=== PATIENT | female | born 1960 | race African-American/Black ===

== ENCOUNTER 2017-03-09 11:54 | Emergency (ER) | payer MEDICAID, MEDICARE ==
[~2017-03-09] VITALS: Ht 167.6 cm; Wt 78.0 kg
[~2017-03-09 11:54] MED LIST: ATOR80TA PO; CLON.2 PO; CLOTCRE17 TOP; COMPTAB16 PO; HYDR-3533 PO
[2017-03-09 11:56] VITALS: BP 118/67; PULSE 78; RESP 16; TEMP 98.2; O2SAT 98
[2017-03-09] MEDS ORDERED: FLUT50SP EACH NARE ×2 (12:27→12:36)
[2017-03-09] MEDS ORDERED: LISI10TA PO (12:30)
--- NOTE | 2017-03-09 12:31 | PD ---
HPI Chief Complaint: Bite or Sting Time Seen by Provider: 12:05 Travel History International Travel<30 days: No Contact w/Intl Traveler<30days: No Traveled to known affect area: No History of Present Illness HPI 57-year-old female past medical history of HIV, hypothyroid, HTN, hyperlipidemia presents to the emergency department with chief complaint of pruritic insect bites. Patient reports that she was bitten by a mosquito on the right side of her face and multiple ant bites to her right foot yesterday while outside. She reports that this morning she noticed mild swelling to the right side of the face. The Area continues to be pruritic therefore she came into the ER for evaluation. She denies fevers, chills, nausea, or vomiting. She reports mild pain in the right foot at the site of the ant bites. She reports similar symptoms previously dictated. She reports compliance with her HIV meds her last CD4 count was 541. PFSH Past Medical History Narrative Medical Pertinent past medical history HIV positive, hypertension, hypothyroidism, hyperlipidemia. Arthritis: Yes (RA RT KNEE) Asthma: No Autoimmune Disease: Yes (HIV POSITIVE) Blood Disorders: No Anxiety: No Depression: No Heart Rhythm Problems: No Cancer: No Cardiovascular Problems: No High Cholesterol: Yes Chemotherapy: No Chest Pain: No Congestive Heart Failure: No COPD: No Cerebrovascular Accident: No Diabetes: No Diminished Hearing: No Endocrine: No GERD: No Glaucoma: No Genitourinary: No Headaches: No Hepatitis: No Hiatal Hernia: No Hypertension: No Immune Disorder: Yes (HIV POS) Kidney Stones: No Musculoskeletal: No Neurologic: No Psychiatric: No Reproductive: No Respiratory: No Migraines: No Myocardial Infarction: No Radiation Therapy: No Renal Failure: No Seizures: No Sickle Cell Disease: No Sleep Apnea: No Ulcer: No PNEUMOCCOCAL Vaccine (Year): 2009 Menopausal: Yes : 4 Para: 4 Tubal Ligation: Yes Past Surgical History Abdominal Surgery: No AICD: No Appendectomy: No Arteriovenous Shunt: No Cardiac Surgery: No Cholecystectomy: No Ear Surgery: No Endocrine Surgery: No Eye Surgery: No Genitourinary Surgery: No Gynecologic Surgery: No Insulin Pump: No Joint Replacement: No Oral Surgery: No Thoracic Surgery: No Other Surgery: Yes (SKIN GRAFT LFT LEG) Social History Alcohol Use: Yes (OCCASIONALLY) Tobacco Use: Yes (1/2 PPD) Allergies-Medications (Allergen,Severity, Reaction): Coded Allergies: Penicillin (Verified Allergy, Intermediate, HIVES, 03/09/17) Reported Meds & Prescriptions Reported Meds & Active Scripts Active Reported Fluticasone Nasal [place] 50 Mcg/Act Naspr 50 Mcg EACH NARE BID 50 mcg/spray Ranitidine (Ranitidine HCl) 150 Mg Cap 150 Mg PO DAILY Omeprazole 40 Mg Cap 40 Mg PO DAILY Odefsey (Vanhtqsbvnraz-Obenelqazlx-Etocuekqz Alafenam) 200-200-25 Mg Tab 1 Tab PO DAILY Levothyroxine (Levothyroxine Sodium) 125 Mcg Tab 125 Mcg PO DAILY Atorvastatin (Atorvastatin Calcium) 80 Mg Tab 80 Mg PO HS Lisinopril-Hctz 10-12.5 Mg Tab 1 Tab PO DAILY Review of Systems Except as stated in HPI: all other systems reviewed are Neg Physical Exam Narrative GENERAL: [Well-appearing, well-nourished female-] SKIN: Focused skin assessment warm/dry. 2 x 2 centimeter area of mild erythema and swelling to the right lower face without fluctuance or induration. 2 small erythematic papules on the right foot. No lymphangitis. HEAD: Atraumatic. Normocephalic. EYES: Pupils equal and round. No scleral icterus. No injection or drainage. ENT: No nasal bleeding or discharge. Mucous membranes pink and moist. No oropharyngeal swelling. Uvula midline. Normal dentition. NECK: Trachea midline. No JVD. CARDIOVASCULAR: Regular rate and rhythm. No murmur appreciated. RESPIRATORY: No accessory muscle use. Clear to auscultation. Breath sounds equal bilaterally. No wheezes or rhonchi. GASTROINTESTINAL: Abdomen soft, non-tender, nondistended. Hepatic and splenic margins not palpable. MUSCULOSKELETAL: No obvious deformities. No clubbing. No cyanosis. No edema. NEUROLOGICAL: Awake and alert. No obvious cranial nerve deficits. Motor grossly within normal limits. Normal speech. PSYCHIATRIC: Appropriate mood and affect; insight and judgment normal. Data Data Last Documented VS Vital Signs Date Time Temp Pulse Resp B/P Pulse Ox O2 Delivery O2 Flow Rate FiO2 03/09/17 11:56 98.2 78 16 118/67 98 MDM Medical Decision Making Medical Screen Exam Complete: Yes Emergency Medical Condition: Yes Medical Record Reviewed: Yes Differential Diagnosis Insect bite, abscess, cellulitis Narrative Course 56-year-old female presents the emergency department for multiple pruritic insect bites. She denies fever or chills. She reports mild pain in the right foot at the site of the ant bites. Her main concern is the itching which caused her not to sleep well last night. She did not take OTC Benadryl. Patient's physical exam is consistent with insect bite causing mild localized inflammation. The areas do not appear infected. The bites will be treated with OTC Benadryl and topical steroid cream. Discussed warning signs of infection and need for return should she develop signs/symptoms of infection. Patient agrees to this plan. Diagnosis Primary Impression: Insect bite Qualified Code: W57.XXXA - Insect bite, initial encounter Referrals: Primary Care Physician Patient Instructions: General Instructions, Insect Bite or Sting (ED) Scripts Hydrocortisone (Topical) (Ala-Storm Topical)1% Cream1 Applic TOPICAL DIRECTED #15 GM Ref 0 Prov:Daja Michaels 03/09/17 Diphenhydramine (Benadryl Allergy)25 Mg Tab25 Mg PO Q6H PRN (ALLERGIES) #12 TAB Ref 0 Prov:Daja Michaels 03/09/17 Daja Michaels March 09, 2017 12:31
[2017-03-09] MEDS ORDERED: EMTR1TAB2 PO (12:35)
[2017-03-09] MEDS ORDERED: OMEP40CA2 PO (12:35)
[2017-03-09] MEDS ORDERED: RANI150C PO (12:35)
[2017-03-09] MEDS ORDERED: ATOR1TAB18 PO (12:35)
[2017-03-09] MEDS ORDERED: LEVO125T4 PO (12:35)
[2017-03-09] MEDS ORDERED: BENA25TA3 PO (12:40)
[2017-03-09] MEDS ORDERED: ALA1CRE2 TOPICAL (12:40)
[2017-03-09] MEDS ORDERED: ACETAMINOPHEN 325 MG TAB PO ONE (12:45)
[2017-03-09] MEDS ORDERED: diphenhydrAMINE HCL 25 MG CAP PO ONE (12:45)
== END 2017-03-09 13:02 | disposition home or self-care (01) ==
LOC: NEPK 11:54
DX: S00.86XA Insect bite (nonvenomous) of other part of head, initial encounter (principal); S90.861A Insect bite (nonvenomous), right foot, initial encounter; B20 Human immunodeficiency virus [HIV] disease; E78.5 Hyperlipidemia, unspecified; E03.9 Hypothyroidism, unspecified; I10 Essential (primary) hypertension; M06.9 Rheumatoid arthritis, unspecified; W57.XXXA Bitten or stung by nonvenomous insect and other nonvenomous arthropods, initial encounter
CPT/HCPCS: 99283

== ENCOUNTER 2017-06-22 17:37 | Emergency (ER) | payer MEDICARE, MEDICAID ==
[~2017-06-22] VITALS: Ht 167.6 cm; Wt 74.0 kg
[~2017-06-22 17:37] MED LIST changes: +ALA1CRE2 TOPICAL; +ATOR1TAB18 PO; -ATOR80TA PO; +BENA25TA3 PO; -CLON.2 PO; -CLOTCRE17 TOP; -COMPTAB16 PO; +EMTR1TAB2 PO; +FLUT50SP EACH NARE; -HYDR-3533 PO; +LEVO125T4 PO; +LISI10TA PO; +OMEP40CA2 PO; +RANI150C PO
[2017-06-22 17:40] VITALS: BP 148/72; PULSE 92; RESP 16; TEMP 98.4; O2SAT 98
--- NOTE | 2017-06-22 18:27 | PD ---
HPI Chief Complaint: Back/ Neck Pain or Injury Time Seen by Provider: 18:24 Travel History International Travel<30 days: No Contact w/Intl Traveler<30days: No Traveled to known affect area: No History of Present Illness HPI 56-year-old female presents to the emergency Department with complaint of low back pain after changing a tire on her car on Wednesday and pulling up on a tire. Denies encopresis, incontinence, saddle anesthesias. Denies paresthesias, loss of sensation, decreased range of motion, decreased strength to bilateral lower symptoms. Denies difficulty in breathing. Denies abdominal pain, fever, dysuria, difficulty stooling. Denies IV drug use or cancer. Has been taking ibuprofen for symptom management. Pain is aggravated with movement. Pain is decreased with sitting up. Allergies to penicillin. Denies anticoagulates. Has no other medical complaints. No other modifying factors or associated signs and symptoms. PFSH Past Medical History Arthritis: Yes (RA RT KNEE) Asthma: No Autoimmune Disease: Yes (HIV POSITIVE) Blood Disorders: No Anxiety: No Depression: No Heart Rhythm Problems: No Cancer: No Cardiovascular Problems: No High Cholesterol: Yes Chemotherapy: No Chest Pain: No Congestive Heart Failure: No COPD: No Cerebrovascular Accident: No Diabetes: No Diminished Hearing: No Endocrine: No GERD: No Glaucoma: No Genitourinary: No Headaches: No Hepatitis: No Hiatal Hernia: No Hypertension: No Immune Disorder: Yes (HIV POS) Kidney Stones: No Musculoskeletal: No Neurologic: No Psychiatric: No Reproductive: No Respiratory: No Migraines: No Myocardial Infarction: No Radiation Therapy: No Renal Failure: No Seizures: No Sickle Cell Disease: No Sleep Apnea: No Ulcer: No Tetanus Vaccination: > 5 Years PNEUMOCCOCAL Vaccine (Year): 2009 ?: Not Menopausal: Yes : 4 Para: 4 Tubal Ligation: Yes Past Surgical History Abdominal Surgery: No AICD: No Appendectomy: No Arteriovenous Shunt: No Cardiac Surgery: No Cholecystectomy: No Ear Surgery: No Endocrine Surgery: No Eye Surgery: No Genitourinary Surgery: No Gynecologic Surgery: No Insulin Pump: No Joint Replacement: No Oral Surgery: No Thoracic Surgery: No Other Surgery: Yes (SKIN GRAFT LFT LEG) Social History Alcohol Use: Yes (OCCASIONALLY) Tobacco Use: Yes (1/2 PPD) Substance Use: Yes Allergies-Medications (Allergen,Severity, Reaction): Coded Allergies: penicillin G (Unverified Allergy, Intermediate, HIVES, 06/22/17) Reported Meds & Prescriptions Reported Meds & Active Scripts Active Ibuprofen 800 Mg Tab 800 Mg PO Q8HR PRN Robaxin (Methocarbamol) 500 Mg Tab 500 Mg PO QID PRN Ala-Storm Topical (Hydrocortisone (Topical)) 1% Cream 1 Applic TOPICAL DIRECTED Reported Fluticasone Nasal [place] 50 Mcg/Act Naspr 50 Mcg EACH NARE BID 50 mcg/spray Ranitidine (Ranitidine HCl) 150 Mg Cap 150 Mg PO DAILY Omeprazole 40 Mg Cap 40 Mg PO DAILY Odefsey (Yojahgfwxboer-Ulwmvzxmcsz-Ejbmaczby Alafenam) 200-200-25 Mg Tab 1 Tab PO DAILY Levothyroxine (Levothyroxine Sodium) 125 Mcg Tab 125 Mcg PO DAILY Atorvastatin (Atorvastatin Calcium) 80 Mg Tab 80 Mg PO HS Lisinopril-Hctz 10-12.5 Mg Tab 1 Tab PO DAILY Review of Systems Except as stated in HPI: all other systems reviewed are Neg Physical Exam Narrative GENERAL: Well-nourished, well-developed black female patient, in no acute distress; afebrile, nontoxic-appearing SKIN: Warm and dry. HEAD: Atraumatic. Normocephalic. EYES: Pupils equal and round. No scleral icterus. No injection or drainage. ENT: Mucosa pink and moist. Airway patent. NECK: Trachea midline. CARDIOVASCULAR: Regular rate. RESPIRATORY: No accessory muscle use. GASTROINTESTINAL: Flat. MUSCULOSKELETAL: Bilateral lower extremities supple and non-tense with 2+ pedal pulses and sensory intact; with full range of motion and 5/5 strength. 2 + DTRs bilaterally. Active dorsiflexion and extension of bilateral feet. Bilateral straight leg raise is negative for low back pain. Ambulatory in room with normal gait. Sitting up in bed at 90. No obvious deformities. No clubbing. No cyanosis. No edema. BACK: No midline point tenderness on palpation of the lumbar or thoracic spine. Tenderness on palpation of bilateral lumbar paraspinal and iliosacral area. No obvious deformities. NEUROLOGICAL: Awake and alert. Oriented 3. No obvious cranial nerve deficits. Motor grossly within normal limits. Normal speech. Moves all extremities. 5/5 strength to all extremities. Sensory intact. PSYCHIATRIC: Appropriate mood and affect; insight and judgment normal. Data Data Last Documented VS Vital Signs Date Time Temp Pulse Resp B/P (MAP) Pulse Ox O2 Delivery O2 Flow Rate FiO2 06/22/17 17:40 98.4 92 16 148/72 (97) 98 Orders Orders Ketorolac Inj (Toradol Inj) (06/22/17 18:30) Orphenadrine Inj (Norflex Inj) (06/22/17 18:30) MDM Medical Decision Making Medical Screen Exam Complete: Yes Emergency Medical Condition: Yes Medical Record Reviewed: Yes Differential Diagnosis Low back strain, acute low back pain, muscle spasm Narrative Course 56-year-old female visible exam and history of present illness consistent with low back strain. Ambulatory with normal gait. No midline tenderness on palpation of the thoracic or lumbar spine. Denies IV drug use or cancer. Denies encopresis, incontinence, saddle anesthesias. Toradol and Norflex administered in the ER. Robaxin and ibuprofen prescribed for home. Instructed patient to follow up with primary care provider. Patient verbalizes understanding and agreement with treatment plan. Patient is medically cleared and stable for discharge. Discussed reasons to return to the emergency department. Patient agrees with treatment plan. The patients vital signs are stable and the patient is stable for outpatient follow-up and treatment. Patient discharged home, stable and in no acute distress. Diagnosis Primary Impression: Low back strain Qualified Codes: S39.012A - Strain of muscle, fascia and tendon of lower back , initial encounter Referrals: Primary Care Physician Patient Instructions: Acute Low Back Pain (ED), General Instructions, Low Back Strain (ED) Departure Forms: Tests/Procedures, Work Release Enter return to work date: Jun 26, 2017 Additional Instructions: Tylenol or ibuprofen as directed and as needed for pain Robaxin as prescribed and as needed for muscle spasms Heating pad and/or ice to affected area to reduce pain Avoid aggravating activities; increase activity as tolerated Follow-up with primary care provider Return to emergency department immediately with worsening of symptoms Med/Other Pt SpecificInfo: Prescription(s) given Scripts Ibuprofen (Ibuprofen) 800 Mg Tab 800 MG PO Q8HR Y for PAIN, #30 TAB 0 Refills Prov: Alma Bowles 06/22/17 Methocarbamol (Robaxin) 500 Mg Tab 500 MG PO QID Y for MUSCLE SPASM, #30 TAB 0 Refills Prov: Alma Bowles 06/22/17 Disposition: 01 DISCHARGE HOME Condition: Stable Alma Bowles Jun 22, 2017 18:27
[2017-06-22] MEDS ORDERED: ROBA500T PO (18:29)
[2017-06-22] MEDS ORDERED: IBUP800T23 PO (18:29)
[2017-06-22] MEDS ORDERED: ORPHENADRINE INJ 60 MG/2 ML AMP IM ONE (18:30)
[2017-06-22] MEDS ORDERED: KETOROLAC TROMETHAMINE 60 MG/2 ML (IM) VIAL IM ONE (18:30)
== END 2017-06-22 18:48 | disposition home or self-care (01) ==
LOC: NEPK 17:37
DX: S39.012A Strain of muscle, fascia and tendon of lower back, initial encounter (principal); M06.9 Rheumatoid arthritis, unspecified; E78.00 Pure hypercholesterolemia, unspecified; F17.200 Nicotine dependence, unspecified, uncomplicated; X50.9XXA Other and unspecified overexertion or strenuous movements or postures, initial encounter; Z79.899 Other long term (current) drug therapy; Z21 Asymptomatic human immunodeficiency virus [HIV] infection status; Z88.0 Allergy status to penicillin
CPT/HCPCS: 96372; 99284; J1885; J2360